=== PATIENT | female | born 1975 | race Caucasian/White ===

== ENCOUNTER 2018-04-19 20:39 | Emergency (ER) | payer SELFPAY ==
[~2018-04-19] VITALS: Ht 170.2 cm; Wt 141.4 kg
[~2018-04-19 20:39] MED LIST: FIBRO-TABS1 TAB PO; GLIPIZIDE5 MG PO; HCTZ 25MG25 MG PO; LISINOPRIL10 MG PO; METOPROLOL25 MG PO; MULTI VITAMINS1 TAB PO; SERTRALINE50 MG PO; TRICOR145 MG PO
[2018-04-19 20:58] VITALS: TEMP 98.2
[2018-04-19 21:54] LABS: BASO % 0.3 % (0.0-2.0); EOS # 0.1 (0.0-0.7); EOS % 0.7 % (0-4.0); GRAN # 4.8 (1.4-6.5); GRAN % 63.8 % (42.2-75.2); HEMATOCRIT 44.7 % (37.0-47.0); HEMOGLOBIN 15.3 g/dl (12.5-16.0); LYMPH # 1.8 (1.2-3.4); LYMPH % 23.4 % (20.0-51.0); MEAN CELL VOLUME 89 fl (80.0-100.0); MEAN CORPUSCULAR HEMOGLOBIN 31 pg (27.0-31.0); MEAN CORPUSCULAR HGB CONC 34 g/dl (33.0-37.0); MEAN PLATELET VOLUME 10.2 fl (7.4-10.4); MONO # 0.9 (0.1-0.6); MONO % 11.4 % (1.7-9.3); PLATELET COUNT 199 K/mm3 (130-400); RED BLOOD COUNT 5.02 M/mm3 (4.10-5.30); REDCELL DISTRIBUTION WIDTH-CV 12.3 % (11.5-14.5)
[2018-04-19 21:56] LABS: ALBUMIN 3.9 gm/dL (3.5-5.0); BILIRUBIN,TOTAL 0.6 mg/dL (0.0-1.0); C-REACTIVE PROTEIN 0.5 mg/dL (0.0-0.9); CALCIUM 8.6 mg/dL (8.4-10.2); CREATININE, serum 0.64 mg/dL (0.52-1.25); POTASSIUM 3.9 mmol/L (3.4-5.0); TOTAL PROTEIN 6.9 gm/dL (6.4-8.2)
[2018-04-19 22:18] LABS: COLLECTION METHOD CLEAN CATCH
[2018-04-19 22:24] LABS: MUCOUS Present /lpf; PH 5 (5-8); URINE APPEARANCE Hazy; URINE BACTERIA Rare /hpf; URINE BILIRUBIN Negative (NEGATIVE); URINE BLOOD Negative (NEGATIVE); URINE COLOR Amber; URINE GLUCOSE Negative (NEGATIVE); URINE KETONE Trace (NEGATIVE); URINE LEUKOCYTE ESTERASE Negative (NEGATIVE); URINE NITRATE Negative (NEGATIVE); URINE PROTEIN(semi-quant) 2+ (NEGATIVE); URINE RBC 0-2 /hpf
[2018-04-19] MEDS ORDERED: TAMIFLU 75MG75 MG PO (23:16)
[2018-04-19] MEDS ORDERED: ZOFRAN 4MG T4 MG/TAB PO (23:16)
[2018-04-19 23:26] VITALS: BP 143/84; PULSE 65
== END 2018-04-19 23:26 | disposition home or self-care (01) ==
LOC: COL.ER 20:39
PROVIDERS: Emergency Medicine
DX: J10.1 Influenza due to other identified influenza virus with other respiratory manifestations (principal); R11.2 Nausea with vomiting, unspecified; R10.30 Lower abdominal pain, unspecified; R11.10 Vomiting, unspecified; I10 Essential (primary) hypertension; E11.9 Type 2 diabetes mellitus without complications; E66.9 Obesity, unspecified; Z86.73 Personal history of transient ischemic attack (TIA), and cerebral infarction without residual deficits
CPT/HCPCS: J2405; J7030